=== PATIENT | female | born 1985 | race Caucasian/White ===

== ENCOUNTER 2021-04-25 17:08 | Emergency (ER) | payer MEDICAID ==
[~2021-04-25] VITALS: Ht 157.5 cm; Wt 100.0 kg
[2021-04-25 19:57] LABS: BASOPHILS % 0.5 % (0.0-2.0); HEMATOCRIT. 33.2 % (36.0-48.0); HEMOGLOBIN. 11.2 g/dL (12.0-16.0); LYMPHOCYTES % 11.7 % (20.0-50.0); MEAN CORPUSCULAR HEMOGLOBIN 25.9 pg (28.0-32.0); MEAN CORPUSCULAR VOLUME 77.1 fL (81.0-99.0); MEAN PLATELET VOLUME 8.8 fl (7.4-10.4); MONOCYTES % 8.5 % (2.0-8.0); NEUTROPHILS % 78.3 % (40.0-76.0); PLATELET 215 x1000/uL (130-400); RED BLOOD CELL COUNT 4.31 mill/uL (4.2-5.4); RED CELL DISTRIBUTION WIDTH 14.4 % (11.6-14.6)
[2021-04-25 20:00] LABS: CHLORIDE 108 mEq/L (98-107)
[2021-04-25 20:23] LABS: B-HCG QUANTITATIVE 16564 mIU/mL (<3)
[2021-04-25 22:48] VITALS: BP 120/70
== END 2021-04-25 22:50 | disposition home or self-care (01) ==
LOC: ER 17:08
DX: O20.9 Hemorrhage in early pregnancy, unspecified (principal); O99.012 Anemia complicating pregnancy, second trimester; O09.522 Supervision of elderly multigravida, second trimester; Z3A.17 17 weeks gestation of pregnancy
CPT/HCPCS: 36415; 76805; 80053; 84702; 85025; 86850; 86900; 99284

== ENCOUNTER 2021-09-20 14:15 | Observation (INO) | payer MEDICAID ==
[~2021-09-20] VITALS: Ht 157.5 cm; Wt 104.8 kg
== END 2021-09-20 17:35 | disposition home or self-care (01) ==
LOC: 8 EST LDRP 14:15
PROVIDERS: ADMIT Obstetrics & Gynecology; ATTEND Obstetrics & Gynecology
DX: O36.8130 Decreased fetal movements, third trimester, not applicable or unspecified (principal); O62.9 Abnormality of forces of labor, unspecified; O46.93 Antepartum hemorrhage, unspecified, third trimester; Z3A.38 38 weeks gestation of pregnancy
CPT/HCPCS: 59025; 76805; 76818; G0378; 99281

== ENCOUNTER 2021-09-24 03:29 | Inpatient (IN) | payer MEDICAID ==
[~2021-09-24] VITALS: Ht 157.5 cm; Wt 104.8 kg
[2021-09-24] MEDS ORDERED: BUTORPHANOL TARTRATE 2 MG/ML VIAL IV PRN (04:45)
[2021-09-24] MEDS ORDERED: AMPICILLIN 2GM in NS 100ML 100 ML IV NR (04:45)
[2021-09-24] MEDS ORDERED: LIDOCAINE HCL 1% 20ML VIAL (Pyxis) INJ INFIL SCH (04:45)
[2021-09-24] MEDS ORDERED: MISOPROSTOL 100MCG TABLET VG SCH (04:45)
[2021-09-24] MEDS ORDERED: METHYLERGONOVINE MALEATE 0.2 MG/ML IM PRN (05:00)
[2021-09-24] MEDS ORDERED: CARBOPROST TROMETHAMINE 250 MCG/ML AMPUL IM PRN (05:00)
[2021-09-24] MEDS: LACTATED RINGERS 1,000 ML IV SCH ×3 (05:15→08:09)
[2021-09-24] MEDS: OXYTOCIN 30 UNITS/500ML NS PMX 500 ML IV SCH ×2 (06:04→12:01)
[2021-09-24 06:32] LABS: BASOPHILS % 0.4 % (0.0-2.0); EOSINOPHILS % 0.6 % (0.0-5.0); HEMATOCRIT. 32.1 % (36.0-48.0); HEMOGLOBIN. 10.6 g/dL (12.0-16.0); LYMPHOCYTES % 18.4 % (20.0-50.0); MEAN CORPUSCULAR HEMOGLOBIN 23.2 pg (28.0-32.0); MEAN CORPUSCULAR VOLUME 70.7 fL (81.0-99.0); MEAN PLATELET VOLUME 9.3 fl (7.4-10.4); MONOCYTES % 8.3 % (2.0-8.0); NEUTROPHILS % 72.3 % (40.0-76.0); PLATELET 238 x1000/uL (130-400); RED BLOOD CELL COUNT 4.55 mill/uL (4.2-5.4); RED CELL DISTRIBUTION WIDTH 16.4 % (11.6-14.6)
[2021-09-24 06:34] LABS: CLARITY URINE CLOUDY (CLEAR); COLOR URINE YELLOW (YELLOW); KETONES URINE 1+ (NEGATIVE); LEUKOCYTE ESTERASE URINE 2+ (NEGATIVE); NITRITE URINE NEGATIVE (NEGATIVE); OCCULT BLOOD URINE 2+ (NEGATIVE); PROTEIN URINE NEGATIVE (NEGATIVE); SPECIFIC GRAVITY URINE 1.018 (1.005-1.030)
[2021-09-24 06:51] LABS: PARTIAL THROMBOPLASTIN TIME 28.5 sec (23.4-31.0); PROTHROMBIN TIME 10.3 sec (9.6-11.0)
[2021-09-24 07:20] LABS: *AMPHETAMINES SCREEN URINE NEGATIVE (NEGATIVE); *BARBITURATES SCREEN URINE NEGATIVE (NEGATIVE); *BENZODIAZEPINES SCREEN URINE NEGATIVE (NEGATIVE); *COCAINE SCREEN URINE NEGATIVE (NEGATIVE); CANNABINOID URINE SCREEN NEGATIVE (NEGATIVE); METHADONE URINE SCREEN NEGATIVE (NEGATIVE); OPIATES URINE SCREEN NEGATIVE (NEGATIVE); PHENCYCLIDINE URINE SCREEN NEGATIVE (NEGATIVE)
[2021-09-24] MEDS ORDERED: ROPIVACAINE HCL/PF EPIDURAL 200 ML EPI ONE (07:25)
[2021-09-24] MEDS ORDERED: FENTANYL CITRATE/PF 50MCG/ML 2ML VIAL ONE (07:26)
[2021-09-24] MEDS ORDERED: ROPIVACAINE HCL/PF EPIDURAL 200 ML EPI SCH (07:30)
[2021-09-24 07:48] LABS: HEPATITIS B SURFACE ANTIGEN NEGATIVE
[2021-09-24] MEDS ORDERED: EPHEDRINE SULFATE 50MG/ML VIAL ONE (08:27)
[2021-09-24] MEDS ORDERED: LIDOCAINE HCL 2%/EPINEPHRINE 1:100,000 20 ML VIAL INFIL ONE (08:27)
[2021-09-24] MEDS ORDERED: AMPICILLIN 1,000 MG in SODIUM CHLORIDE 0.9% 50 ML IV SCH (11:00)
[2021-09-24] MEDS ORDERED: IBUPROFEN 400MG TABLET PO PRN (12:00)
[2021-09-24] MEDS ORDERED: RHO(D) IMMUNE GLOBULIN 300 MCG/SYR IM PRN (12:00)
[2021-09-24 14:15] VITALS: BP 96/54
[2021-09-24 16:00] VITALS: BP 104/62
[2021-09-24] MEDS: IBUPROFEN 800MG TABLET PO PRN (16:34)
[2021-09-24 20:00] VITALS: BP 109/53
[2021-09-25 03:00] VITALS: BP 100/52
[2021-09-25] MEDS: IBUPROFEN 800MG TABLET PO PRN ×3 (03:02→22:14)
[2021-09-25 08:00] VITALS: BP 112/63
[2021-09-25 08:08] LABS: BASOPHILS % 0.2 % (0.0-2.0); EOSINOPHILS % 0.6 % (0.0-5.0); HEMATOCRIT. 27.6 % (36.0-48.0); LYMPHOCYTES % 17.4 % (20.0-50.0); MEAN CORPUSCULAR HEMOGLOBIN 23.5 pg (28.0-32.0); MEAN CORPUSCULAR VOLUME 71.8 fL (81.0-99.0); MEAN PLATELET VOLUME 9.5 fl (7.4-10.4); MONOCYTES % 9.6 % (2.0-8.0); NEUTROPHILS % 72.2 % (40.0-76.0); PLATELET 198 x1000/uL (130-400); RED BLOOD CELL COUNT 3.85 mill/uL (4.2-5.4); RED CELL DISTRIBUTION WIDTH 16.4 % (11.6-14.6)
[2021-09-25] MEDS: FERROUS SULFATE 325MG TABLET PO SCH ×2 (08:19→17:27)
[2021-09-25] MEDS ORDERED: PRENATAL VIT/FE FUMARATE/FA TABLET PO SCH (09:00)
[2021-09-25 16:00] VITALS: BP 122/85
[2021-09-25 20:00] VITALS: BP 121/67
[2021-09-26 04:00] VITALS: BP 122/68
[2021-09-26] MEDS: IBUPROFEN 800MG TABLET PO PRN (04:56)
[2021-09-26 08:15] VITALS: BP 128/80
== END 2021-09-26 11:00 | disposition home or self-care (01) | DRG 560 ==
LOC: 8 EST LDRP 03:29 → OBSVTOIN 03:29 → 8EST 14:05
PROVIDERS: ADMIT Obstetrics & Gynecology; ATTEND Obstetrics & Gynecology
PROC: 10D07Z6 Extraction of Products of Conception, Vacuum, Via Natural or Artificial Opening (ICD-10-PCS; principal; 2021-09-24)
PROC: 3E0R3BZ Introduction of Anesthetic Agent into Spinal Canal, Percutaneous Approach (ICD-10-PCS; 2021-09-24)
PROC: 00HU33Z Insertion of Infusion Device into Spinal Canal, Percutaneous Approach (ICD-10-PCS; 2021-09-24)
DX: O99.214 Obesity complicating childbirth (principal); Z37.0 Single live birth; Z20.822 Contact with and (suspected) exposure to COVID-19; Z3A.38 38 weeks gestation of pregnancy
CPT/HCPCS: 36415; 80305; 81003; 85025; 86592; 86703; 86762; 86850; 86900; 87340; 87426; 99281; J0290; J2795; J3010; J3490; J7120; A4315; J2590